=== PATIENT | male | born 1980 | race Caucasian/White ===

== ENCOUNTER 2021-03-12 02:10 | Emergency (ER) | payer OTHER ==
[~2021-03-12] VITALS: Ht 175.3 cm; Wt 75.0 kg
[2021-03-12 02:10] VITALS: BP 135/87
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
--- NOTE | 2021-03-12 05:33 | RAD ---
EXAM: LEFT HAND 3 VIEWS. HISTORY: Fifth finger injury. COMPARISON: None. FINDINGS: There is a small chip fracture along the medial aspect of the fifth distal phalangeal tuft. Soft tissue swelling is noted. Alignment is maintained. Joint spaces are maintained. IMPRESSION: 1. Nondisplaced fracture of the fifth distal phalangeal tuft. Electronically signed by: Miguelina Augustin MD (03/12/2021 5:31 AM) [facility]
== END 2021-03-12 03:21 | disposition home or self-care (01) ==
LOC: ER 02:10
DX: S62.638A Displaced fracture of distal phalanx of other finger, initial encounter for closed fracture (principal); W23.0XXA Caught, crushed, jammed, or pinched between moving objects, initial encounter; Y93.89 Activity, other specified; Y92.89 Other specified places as the place of occurrence of the external cause; Y99.8 Other external cause status
CPT/HCPCS: 73130; 99283